=== PATIENT | female | born 1995 | race Caucasian/White ===

== ENCOUNTER 2019-07-18 17:17 | Outpatient (CLI) | payer OTHER ==
[~2019-07-18] VITALS: Ht 167.6 cm; Wt 107.3 kg
[~2019-07-18 17:17] MED LIST: PREN-19 PO
[2019-07-18 19:10] VITALS: Ht 167.6 cm; Wt 107.3 kg
[2019-07-18 19:25] VITALS: BP 110/64; PULSE 81; RESP 16
== END 2019-07-18 20:17 | disposition home or self-care (01) ==
LOC: OBT 17:17 → L-D 17:19 → OBT 20:17
PROVIDERS: ATTEND Obstetrics & Gynecology
DX: O43.123 Velamentous insertion of umbilical cord, third trimester (principal); Z3A.37 37 weeks gestation of pregnancy
CPT/HCPCS: 76818; Z7500; G0463

== ENCOUNTER 2019-07-20 15:01 | Outpatient (CLI) | payer OTHER ==
[~2019-07-20] VITALS: Ht 172.7 cm; Wt 108.5 kg
[2019-07-20 15:51] VITALS: BP 108/58; PULSE 74; RESP 18
[2019-07-20 15:52] VITALS: Ht 172.7 cm; Wt 108.5 kg
== END 2019-07-20 16:23 | disposition home or self-care (01) ==
LOC: L-D 15:01 → OBT 15:01
PROVIDERS: ATTEND Obstetrics & Gynecology
DX: O43.123 Velamentous insertion of umbilical cord, third trimester (principal); Z3A.38 38 weeks gestation of pregnancy
CPT/HCPCS: 76818; Z7500; G0463